=== PATIENT | male | born 1950 | race Caucasian/White ===

== ENCOUNTER 2022-12-25 10:20 | Inpatient (IN) | payer MEDICARE, OTHER ==
[~2022-12-25] VITALS: Ht 195.6 cm; Wt 85.6 kg
[2022-12-25] MEDS ORDERED: FUROSEMIDE 40 MG/4 ML VIAL IV ONE (10:45)
[2022-12-25 11:18] LABS: Hemoglobin 8.6 g/dL (13.5-17.5)
[2022-12-25 11:20] LABS: Hematocrit 27.2 % (41.0-53.0); Mean Corpuscular Hemoglobin 39.4 pg (28.0-32.0); Mean Corpuscular Hgb Conc. 31.7 g/dL (32.0-36.0); Mean Corpuscular Volume 124.2 fL (80.0-100.0); Red Blood Cells 2.19 10^6/uL (4.5-5.90); Red Cell Distribution Width 19.2 % (11.8-14.3); White Blood Cell 3.9 10^3/uL (4.4-10.8)
[2022-12-25 11:26] LABS: Potassium 4.6 mmol/L (3.5-5.1)
[2022-12-25 11:30] LABS: Lactic Acid w/Reflex 3.3 mmol/L (0.4-2.0)
[2022-12-25 11:33] LABS: Albumin 3.2 g/dL (3.4-5.0); BUN/Creatinine Ratio 6.2 (10.0-20.0); Bilirubin, Total 1.6 mg/dL (0.2-1.0); Calcium 9.4 mg/dL (8.5-10.1); Magnesium 2.4 mg/dL (1.6-2.6); Total Protein 5.6 g/dL (6.4-8.2)
[2022-12-25 12:01] LABS: Basophils % (manual) 0 (0.0-2.0); Blast Cells 0; Eosinophils % (manual) 0 (0-7); Metamyelocytes % 0; Myelocytes % 0; Promyelocytes % 0; Reactive Lymphocytes 0
[2022-12-25] MEDS ORDERED: VANCOMYCIN PER PHARMACY 1,000 MG IV SCH (12:30)
[2022-12-25 12:51] LABS: Band Neutrophils % (manual) 3; Lymphocytes % (manual) 24 (10.0-50.0); Monocytes % (manual) 12 (0-12)
[2022-12-25] MEDS ORDERED: PIPERACILLIN-TAZOB 2.25GM 50 ML IV ONE (13:30)
[2022-12-25] MEDS ORDERED: PANTOPRAZOLE 40 MG/10 ML VIAL INJ IV ONE (13:30)
[2022-12-25] MEDS ORDERED: VANCOMYCIN 1GM/250ML 250 ML IV ONE (13:36)
[2022-12-25] MEDS ORDERED: ACYC-163 PO (13:40)
[2022-12-25] MEDS ORDERED: DEXA4TAB PO (13:40)
[2022-12-25] MEDS ORDERED: CARV6.2551 PO (13:40)
[2022-12-25] MEDS ORDERED: ASPI1TAB37 PO (13:40)
[2022-12-25] MEDS ORDERED: FOLI1TAB6 PO (13:40)
[2022-12-25] MEDS ORDERED: MONT-8 PO (13:40)
[2022-12-25] MEDS ORDERED: ESCI-28 PO (13:40)
[2022-12-25] MEDS ORDERED: ALBUMIN 5% 250 ML IV ONE (13:45)
[2022-12-25] MEDS ORDERED: MORPHINE SULFATE INJ 2 MG/ml SYRG IV PRN (13:45)
[2022-12-25] MEDS ORDERED: NITROGLYCERIN 0.4 MG SL TAB SL PRN (13:45)
[2022-12-25] MEDS ORDERED: PIPERACILLIN-TAZO 4.5GM 100 ML IV ONE (13:45)
[2022-12-25] MEDS ORDERED: ALBUTEROL SULF 2.5 MG/0.5ML(0.5%) NEB SOLN NEB PRN (14:15)
[2022-12-25 15:24] VITALS: BP 106/73
[2022-12-25 17:25] LABS: Lactic Acid w/Reflex 2.8 mmol/L (0.4-2.0)
[2022-12-25] MEDS ORDERED: ONDANSETRON HCL 4 MG/2 ML VIAL IV ONE (17:30)
[2022-12-25] MEDS: FUROSEMIDE 40 MG/4 ML VIAL IV SCH (18:00)
[2022-12-25] MEDS ORDERED: VANCOMYCIN 500 MG in D5W 5% 100 ML IV ONE (18:30)
[2022-12-25] MEDS: IPRATROPIUM BROM 0.5 MG/2.5ML INH SOL NEB SCH ×2 (18:41→22:03)
[2022-12-25] MEDS: ALBUTEROL SULF 2.5 MG/0.5ML(0.5%) NEB SOLN NEB SCH ×2 (18:41→22:03)
[2022-12-25] MEDS ORDERED: EPOETIN ALFA-EPBX 4,000 UNIT/ML VIAL SC ONE (21:00)
[2022-12-25] MEDS: PIPERACILLIN-TAZOB 2.25GM 50 ML IV SCH (21:53)
[2022-12-25] MEDS ORDERED: PIPERACILLIN-TAZO 4.5GM 100 ML IV SCH (22:00)
[2022-12-25 22:03] LABS: Urine Bacteria NONE SEEN /hpf (None Seen); Urine Blood Negative /uL (Negative); Urine Hyaline Cast FEW /lpf (0 - 2); Urine WBC 1 /hpf (0 - 3)
[2022-12-25] MEDS: ACYCLOVIR 400 MG TAB PO SCH (23:09)
[2022-12-26] VITALS (8 sets, daily range): BP systolic 101–135; BP diastolic 56–68
[2022-12-26] MEDS: ALBUTEROL SULF 2.5 MG/0.5ML(0.5%) NEB SOLN NEB SCH ×5 (01:55→19:13)
[2022-12-26] MEDS: IPRATROPIUM BROM 0.5 MG/2.5ML INH SOL NEB SCH ×5 (01:55→19:11)
[2022-12-26] MEDS: PIPERACILLIN-TAZOB 2.25GM 50 ML IV SCH ×4 (02:00→22:03)
[2022-12-26] MEDS: FUROSEMIDE 40 MG/4 ML VIAL IV SCH ×2 (05:57→19:01)
[2022-12-26 06:13] LABS: Basophils # (auto) 0 10 ^3/uL (0-0.2); Basophils % (auto) 0.2 % (0.0-2.0); Eosinophils # (auto) 0 10 ^3/uL (0-0.8); Hemoglobin 7.2 g/dL (13.5-17.5); Lymphocytes # (auto) 0.6 10 ^3/uL (0.4-5.4); Mean Corpuscular Hgb Conc. 33.4 g/dL (32.0-36.0); Monocytes # (auto) 0.5 10 ^3/uL (0-1.3); Neutrophils # (auto) 2.3 10 ^3/uL (1.6-8.6); Red Blood Cells 1.81 10^6/uL (4.5-5.90); White Blood Cell 3.5 10^3/uL (4.4-10.8)
[2022-12-26 06:15] LABS: Eosinophils % (auto) 0.9 % (0.0-7.0); Hematocrit 21.5 % (41.0-53.0); Mean Corpuscular Hemoglobin 39.8 pg (28.0-32.0); Mean Corpuscular Volume 119.2 fL (80.0-100.0); Monocytes % (auto) 14.9 % (0.0-12.0); Red Cell Distribution Width 18.5 % (11.8-14.3)
[2022-12-26 06:29] LABS: Potassium 4.4 mmol/L (3.5-5.1)
[2022-12-26 06:58] LABS: Albumin 2.9 g/dL (3.4-5.0); BUN/Creatinine Ratio 6.5 (10.0-20.0)
[2022-12-26 07:00] LABS: Bilirubin, Total 1.4 mg/dL (0.2-1.0); Total Protein 4.9 g/dL (6.4-8.2)
[2022-12-26] MEDS: MONTELUKAST SODIUM 10 MG TAB PO SCH (09:02)
[2022-12-26] MEDS: ACYCLOVIR 400 MG TAB PO SCH ×2 (09:02→22:24)
[2022-12-26] MEDS: FOLIC ACID 1 MG TAB PO SCH (09:02)
[2022-12-26] MEDS: CITALOPRAM HYDROBR 20 MG TAB PO SCH (09:02)
[2022-12-26] MEDS: ASPirin-EC 81 mg tab PO SCH (09:02)
[2022-12-26] MEDS: PANTOPRAZOLE 40 MG/10 ML VIAL INJ IV SCH (09:02)
[2022-12-26] MEDS ORDERED: VANCOMYCIN 750mg/250ml 250 ML IV ONE (15:00)
[2022-12-26 20:35] LABS: % Iron Saturation 51.1 % (20-55)
[2022-12-26] MEDS ORDERED: EPOETIN ALFA-EPBX 4,000 UNIT/ML VIAL SC ONE (21:00)
[2022-12-27] VITALS (7 sets, daily range): BP systolic 104–148; BP diastolic 41–78
[2022-12-27] MEDS: PIPERACILLIN-TAZOB 2.25GM 50 ML IV SCH ×4 (02:25→20:47)
[2022-12-27 05:27] LABS: Basophils # (auto) 0 10 ^3/uL (0-0.2); Eosinophils # (auto) 0.1 10 ^3/uL (0-0.8); Hemoglobin 7.4 g/dL (13.5-17.5); Lymphocytes # (auto) 0.7 10 ^3/uL (0.4-5.4); Monocytes # (auto) 0.5 10 ^3/uL (0-1.3); White Blood Cell 3.2 10^3/uL (4.4-10.8)
[2022-12-27 05:29] LABS: Basophils % (auto) 0.3 % (0.0-2.0); Hematocrit 22.3 % (41.0-53.0); Lymphocytes % (auto) 22.4 % (10.0-50.0); Mean Corpuscular Hgb Conc. 33.2 g/dL (32.0-36.0); Mean Corpuscular Volume 120.5 fL (80.0-100.0); Monocytes % (auto) 14.2 % (0.0-12.0); Neutrophils % (auto) 61.1 % (37.0-80.0); Nucleated Red Blood Cells % 1.1 %; Red Blood Cells 1.85 10^6/uL (4.5-5.90); Red Cell Distribution Width 19.1 % (11.8-14.3)
[2022-12-27] MEDS: FUROSEMIDE 40 MG/4 ML VIAL IV SCH ×2 (06:00→18:10)
[2022-12-27] MEDS: IPRATROPIUM BROM 0.5 MG/2.5ML INH SOL NEB SCH ×3 (06:39→19:32)
[2022-12-27] MEDS: ALBUTEROL SULF 2.5 MG/0.5ML(0.5%) NEB SOLN NEB SCH ×3 (06:39→19:32)
[2022-12-27] MEDS: MONTELUKAST SODIUM 10 MG TAB PO SCH (13:03)
[2022-12-27] MEDS: FOLIC ACID 1 MG TAB PO SCH (13:03)
[2022-12-27] MEDS: ACYCLOVIR 400 MG TAB PO SCH ×2 (13:03→20:49)
[2022-12-27] MEDS: PANTOPRAZOLE 40 MG/10 ML VIAL INJ IV SCH (13:03)
[2022-12-27] MEDS: CITALOPRAM HYDROBR 20 MG TAB PO SCH (13:04)
[2022-12-27] MEDS: ASPirin-EC 81 mg tab PO SCH (13:04)
[2022-12-27] MEDS ORDERED: ACETAMINOPHEN 325 MG TAB PO PRN (14:30)
[2022-12-27] MEDS: AMIODARONE HCL 200 MG TAB PO SCH (16:38)
[2022-12-27] MEDS ORDERED: EPOETIN ALFA-EPBX 4,000 UNIT/ML VIAL SC ONE (21:00)
[2022-12-27] MEDS ORDERED: TEMAZEPAM 15 MG CAP PO ONE (21:15)
[2022-12-28] VITALS (7 sets, daily range): BP systolic 101–139; BP diastolic 54–78
[2022-12-28] MEDS: PIPERACILLIN-TAZOB 2.25GM 50 ML IV SCH ×3 (02:40→14:07)
[2022-12-28] MEDS: FUROSEMIDE 40 MG/4 ML VIAL IV SCH ×2 (06:00→18:28)
[2022-12-28] MEDS: IPRATROPIUM BROM 0.5 MG/2.5ML INH SOL NEB SCH ×3 (06:46→19:03)
[2022-12-28] MEDS: ALBUTEROL SULF 2.5 MG/0.5ML(0.5%) NEB SOLN NEB SCH ×3 (06:46→19:03)
[2022-12-28 08:56] LABS: Basophils # (auto) 0 10 ^3/uL (0-0.2); Eosinophils # (auto) 0.1 10 ^3/uL (0-0.8); Hemoglobin 7.4 g/dL (13.5-17.5); Lymphocytes # (auto) 0.6 10 ^3/uL (0.4-5.4); Monocytes # (auto) 0.6 10 ^3/uL (0-1.3); Neutrophils # (auto) 2.1 10 ^3/uL (1.6-8.6); White Blood Cell 3.3 10^3/uL (4.4-10.8)
[2022-12-28 08:57] LABS: Hepatitis B Surface Antibody Positive (Negative)
[2022-12-28 08:58] LABS: Basophils % (auto) 0.2 % (0.0-2.0); Eosinophils % (auto) 1.6 % (0.0-7.0); Hematocrit 22.1 % (41.0-53.0); Lymphocytes % (auto) 17.4 % (10.0-50.0); Mean Corpuscular Hemoglobin 40.1 pg (28.0-32.0); Mean Corpuscular Hgb Conc. 33.5 g/dL (32.0-36.0); Mean Corpuscular Volume 119.8 fL (80.0-100.0); Monocytes % (auto) 17.2 % (0.0-12.0); Neutrophils % (auto) 63.6 % (37.0-80.0); Nucleated Red Blood Cells % 0.8 %; Red Blood Cells 1.84 10^6/uL (4.5-5.90); Red Cell Distribution Width 19.3 % (11.8-14.3)
[2022-12-28 09:05] LABS: Albumin 2.6 g/dL (3.4-5.0); Calcium 7.8 mg/dL (8.5-10.1); Potassium 3.8 mmol/L (3.5-5.1)
[2022-12-28 09:10] LABS: BUN/Creatinine Ratio 5.8 (10.0-20.0); Bilirubin, Total 1.5 mg/dL (0.2-1.0)
[2022-12-28 09:15] LABS: Hepatitis A Total Antibody Negative (Negative)
[2022-12-28] MEDS: FOLIC ACID 1 MG TAB PO SCH (09:39)
[2022-12-28] MEDS: PANTOPRAZOLE 40 MG/10 ML VIAL INJ IV SCH (09:39)
[2022-12-28] MEDS: ASPirin-EC 81 mg tab PO SCH (09:39)
[2022-12-28] MEDS: AMIODARONE HCL 200 MG TAB PO SCH (09:39)
[2022-12-28] MEDS: CITALOPRAM HYDROBR 20 MG TAB PO SCH (09:39)
[2022-12-28] MEDS: MONTELUKAST SODIUM 10 MG TAB PO SCH (09:39)
[2022-12-28] MEDS: ACYCLOVIR 400 MG TAB PO SCH ×2 (09:41→22:18)
[2022-12-28 12:16] LABS: Hepatitis C Antibody Negative (Negative)
[2022-12-28] MEDS ORDERED: IOHEXOL 350 MG/ML 100ML IJ ONE (15:58)
[2022-12-28] MEDS ORDERED: VANCOMYCIN 1GM/250ML 250 ML IV ONE (16:00)
[2022-12-28] MEDS ORDERED: HEPARIN DRIP/D5W 100UNITS/ML 250 ML IV SCH (19:00)
[2022-12-28 19:03] LABS: Basophils # (auto) 0 10 ^3/uL (0-0.2); Basophils % (auto) 0.6 % (0.0-2.0); Eosinophils # (auto) 0.1 10 ^3/uL (0-0.8); Eosinophils % (auto) 1.8 % (0.0-7.0); Hematocrit 25.4 % (41.0-53.0); Lymphocytes # (auto) 0.6 10 ^3/uL (0.4-5.4); Lymphocytes % (auto) 17.5 % (10.0-50.0); Mean Corpuscular Hemoglobin 39.5 pg (28.0-32.0); Mean Corpuscular Hgb Conc. 31.4 g/dL (32.0-36.0); Monocytes # (auto) 0.6 10 ^3/uL (0-1.3); Monocytes % (auto) 15.7 % (0.0-12.0); Neutrophils # (auto) 2.3 10 ^3/uL (1.6-8.6); Neutrophils % (auto) 64.4 % (37.0-80.0); Nucleated Red Blood Cells % 0.5 %; Red Blood Cells 2.01 10^6/uL (4.5-5.90); White Blood Cell 3.6 10^3/uL (4.4-10.8)
[2022-12-28 19:18] LABS: INR 1.21 (0.9-1.15)
[2022-12-28] MEDS: CEFEPIME 1GM/ 50ML 50 ML IV SCH (22:19)
[2022-12-29 02:31] LABS: Basophils # (auto) 0 10 ^3/uL (0-0.2); Eosinophils # (auto) 0.1 10 ^3/uL (0-0.8); Hemoglobin 7.9 g/dL (13.5-17.5); Monocytes # (auto) 0.7 10 ^3/uL (0-1.3); Neutrophils # (auto) 2.4 10 ^3/uL (1.6-8.6); White Blood Cell 4.1 10^3/uL (4.4-10.8)
[2022-12-29 02:33] LABS: Basophils % (auto) 0.5 % (0.0-2.0); Eosinophils % (auto) 1.7 % (0.0-7.0); Hematocrit 24.8 % (41.0-53.0); Lymphocytes % (auto) 23.4 % (10.0-50.0); Mean Corpuscular Hemoglobin 39.6 pg (28.0-32.0); Mean Corpuscular Hgb Conc. 32.1 g/dL (32.0-36.0); Mean Corpuscular Volume 123.6 fL (80.0-100.0); Monocytes % (auto) 16.8 % (0.0-12.0); Neutrophils % (auto) 57.6 % (37.0-80.0); Nucleated Red Blood Cells % 0.5 %
[2022-12-29 02:36] LABS: Red Cell Distribution Width 20.2 % (11.8-14.3)
[2022-12-29] MEDS ORDERED: HEPARIN DRIP/D5W 100UNITS/ML 250 ML IV SCH (04:00)
[2022-12-29 05:00] VITALS: BP 106/63
[2022-12-29] MEDS: IPRATROPIUM BROM 0.5 MG/2.5ML INH SOL NEB SCH ×3 (05:56→19:43)
[2022-12-29] MEDS: ALBUTEROL SULF 2.5 MG/0.5ML(0.5%) NEB SOLN NEB SCH ×3 (05:56→19:43)
[2022-12-29] MEDS: FUROSEMIDE 40 MG/4 ML VIAL IV SCH ×2 (06:18→18:22)
[2022-12-29 08:15] VITALS: BP 139/78
[2022-12-29 09:00] VITALS: BP 101/62
[2022-12-29] MEDS: PANTOPRAZOLE 40 MG/10 ML VIAL INJ IV SCH (10:49)
[2022-12-29] MEDS: CITALOPRAM HYDROBR 20 MG TAB PO SCH (10:50)
[2022-12-29] MEDS: ASPirin-EC 81 mg tab PO SCH (10:50)
[2022-12-29] MEDS: AMIODARONE HCL 200 MG TAB PO SCH (10:50)
[2022-12-29] MEDS: ACYCLOVIR 400 MG TAB PO SCH ×2 (10:51→21:08)
[2022-12-29] MEDS: APIXABAN 2.5 MG TAB PO SCH ×2 (10:51→21:07)
[2022-12-29] MEDS: FOLIC ACID 1 MG TAB PO SCH (10:51)
[2022-12-29] MEDS: MONTELUKAST SODIUM 10 MG TAB PO SCH (10:51)
[2022-12-29 13:00] VITALS: BP 119/59
[2022-12-29 16:25] VITALS: BP 128/65
[2022-12-29] MEDS: CEFEPIME 1GM/ 50ML 50 ML IV SCH (21:01)
[2022-12-30 04:30] VITALS: BP 114/56
[2022-12-30] MEDS: FUROSEMIDE 40 MG/4 ML VIAL IV SCH (06:00)
[2022-12-30] MEDS: IPRATROPIUM BROM 0.5 MG/2.5ML INH SOL NEB SCH ×2 (06:59→12:00)
[2022-12-30] MEDS: ALBUTEROL SULF 2.5 MG/0.5ML(0.5%) NEB SOLN NEB SCH ×2 (06:59→12:00)
[2022-12-30 08:00] VITALS: BP 114/56
[2022-12-30 09:00] VITALS: BP 120/61
[2022-12-30] MEDS: FOLIC ACID 1 MG TAB PO SCH (09:58)
[2022-12-30] MEDS: PANTOPRAZOLE 40 MG/10 ML VIAL INJ IV SCH (09:58)
[2022-12-30] MEDS: CITALOPRAM HYDROBR 20 MG TAB PO SCH (09:58)
[2022-12-30] MEDS: AMIODARONE HCL 200 MG TAB PO SCH (09:58)
[2022-12-30] MEDS: APIXABAN 2.5 MG TAB PO SCH (09:58)
[2022-12-30] MEDS: ACYCLOVIR 400 MG TAB PO SCH (09:58)
[2022-12-30] MEDS: ASPirin-EC 81 mg tab PO SCH (09:58)
[2022-12-30] MEDS: MONTELUKAST SODIUM 10 MG TAB PO SCH (09:58)
[2022-12-30 13:00] VITALS: BP 133/69
[2022-12-30 15:17] VITALS: BP 114/56
[2022-12-30 16:39] VITALS: BP 115/57
== END 2022-12-30 18:25 | DRG 871 ==
LOC: ER 10:20 → EDBD 10:20 → TELE 13:37 → TELE-WESTW 22:14
PROVIDERS: ADMIT Nurse Practitioner Family; ATTEND Family Medicine
PROC: 5A1D70Z Performance of Urinary Filtration, Intermittent, Less than 6 Hours Per Day (ICD-10-PCS; principal; 2022-12-27)
PROC: 5A1D70Z Performance of Urinary Filtration, Intermittent, Less than 6 Hours Per Day (ICD-10-PCS; 2022-12-30)
DX: A41.9 Sepsis, unspecified organism (principal); E43 Unspecified severe protein-calorie malnutrition; N18.6 End stage renal disease; J96.01 Acute respiratory failure with hypoxia; I50.23 Acute on chronic systolic (congestive) heart failure; I26.93 Single subsegmental thrombotic pulmonary embolism without acute cor pulmonale; C90.00 Multiple myeloma not having achieved remission; D61.818 Other pancytopenia; E87.20 Acidosis, unspecified; I48.20 Chronic atrial fibrillation, unspecified; I13.2 Hypertensive heart and chronic kidney disease with heart failure and with stage 5 chronic kidney disease, or end stage renal disease; Z94.84 Stem cells transplant status; R65.20 Severe sepsis without septic shock; D53.9 Nutritional anemia, unspecified; D63.8 Anemia in other chronic diseases classified elsewhere; Z20.822 Contact with and (suspected) exposure to COVID-19; R00.1 Bradycardia, unspecified; I27.20 Pulmonary hypertension, unspecified; I36.1 Nonrheumatic tricuspid (valve) insufficiency; I44.4 Left anterior fascicular block; N28.1 Cyst of kidney, acquired; Z79.899 Other long term (current) drug therapy; Z99.2 Dependence on renal dialysis; Z79.01 Long term (current) use of anticoagulants; Z79.82 Long term (current) use of aspirin; Z82.49 Family history of ischemic heart disease and other diseases of the circulatory system; Z68.22 Body mass index [BMI] 22.0-22.9, adult
CPT/HCPCS: 36415; 71045; 71275; 80053; 80202; 81001; 82668; 82728; 83540; 83550; 83605; 83735; 83880; 84443; 84484; 85007; 85025; 85027; 85379; 85610; 85730; 86704; 86706; 86708; 86803; 86880; 87040; 87081; 87340; 87426; 87804; 90935; 93005; 93306; 93970; 94640; 96365; 96367; 96375; 97163; 99291; C9113; G0378; J2405; J2543; J7060

== ENCOUNTER 2023-01-16 14:57 | Inpatient (IN) | payer MEDICARE, OTHER ==
[~2023-01-16] VITALS: Ht 195.6 cm; Wt 74.4 kg
[~2023-01-16 14:57] MED LIST: ACYC-163 PO; ASPI1TAB37 PO; CARV6.2551 PO; DEXA4TAB PO; ESCI-28 PO; FOLI1TAB6 PO; MONT-8 PO
[2023-01-16 16:19] LABS: Basophils # (auto) 0 10 ^3/uL (0-0.2); Basophils % (auto) 0.7 % (0.0-2.0); Eosinophils # (auto) 0 10 ^3/uL (0-0.8); Eosinophils % (auto) 0.9 % (0.0-7.0); Hematocrit 19.7 % (41.0-53.0); Lymphocytes # (auto) 0.8 10 ^3/uL (0.4-5.4); Lymphocytes % (auto) 17.4 % (10.0-50.0); Mean Corpuscular Volume 117.6 fL (80.0-100.0); Monocytes # (auto) 0.8 10 ^3/uL (0-1.3); Monocytes % (auto) 17.8 % (0.0-12.0); Neutrophils % (auto) 63.2 % (37.0-80.0); Nucleated Red Blood Cells % 0.1 %; Red Blood Cells 1.68 10^6/uL (4.5-5.90); Red Cell Distribution Width 18.3 % (11.8-14.3); White Blood Cell 4.8 10^3/uL (4.4-10.8)
[2023-01-16 16:27] LABS: Hemoglobin 6.7 g/dL (13.5-17.5)
[2023-01-16 16:43] LABS: Albumin 2.7 g/dL (3.4-5.0); Calcium 8.3 mg/dL (8.5-10.1); Potassium 3.4 mmol/L (3.5-5.1)
[2023-01-16 16:47] LABS: BUN/Creatinine Ratio 5.1 (10.0-20.0); Total Protein 5.8 g/dL (6.4-8.2)
[2023-01-16 19:36] LABS: % Iron Saturation 55.2 % (20-55)
[2023-01-16] MEDS ORDERED: DOCUSATE SOD 100 MG CAP PO PRN (22:15)
[2023-01-16] MEDS ORDERED: HYDROcodone-ACET 5/325MG TAB PO PRN (22:15)
[2023-01-16] MEDS ORDERED: ACETAMINOPHEN 325 MG TAB PO PRN (22:15)
[2023-01-16] MEDS ORDERED: ONDANSETRON HCL 4 MG/2 ML VIAL IV PRN (22:15)
[2023-01-16 23:18] LABS: Urine Bacteria NONE SEEN /hpf (None Seen); Urine Blood Negative /uL (Negative); Urine Specific Gravity 1.007 (1.001-1.035); Urine WBC 1 /hpf (0 - 3)
[2023-01-16 23:55] VITALS: BP 124/58
[2023-01-17] MEDS ORDERED: NITROGLYCERIN 0.4 MG SL TAB SL PRN
[2023-01-17] MEDS ORDERED: MORPHINE SULFATE INJ 2 MG/ml SYRG IV PRN
[2023-01-17 00:15] VITALS: BP 125/54
[2023-01-17 02:54] VITALS: BP 121/57
[2023-01-17 06:09] LABS: Basophils # (auto) 0 10 ^3/uL (0-0.2); Hemoglobin 7.6 g/dL (13.5-17.5); Lymphocytes # (auto) 0.9 10 ^3/uL (0.4-5.4); Monocytes # (auto) 0.7 10 ^3/uL (0-1.3)
[2023-01-17 06:12] LABS: Basophils % (auto) 0.8 % (0.0-2.0); Eosinophils # (auto) 0.1 10 ^3/uL (0-0.8); Eosinophils % (auto) 1.3 % (0.0-7.0); Hematocrit 21.9 % (41.0-53.0); Lymphocytes % (auto) 18.4 % (10.0-50.0); Mean Corpuscular Hemoglobin 39.2 pg (28.0-32.0); Mean Corpuscular Hgb Conc. 34.8 g/dL (32.0-36.0); Mean Corpuscular Volume 112.7 fL (80.0-100.0); Neutrophils % (auto) 64.5 % (37.0-80.0); Red Blood Cells 1.94 10^6/uL (4.5-5.90); White Blood Cell 4.7 10^3/uL (4.4-10.8)
[2023-01-17 06:14] LABS: Red Cell Distribution Width 21.6 % (11.8-14.3)
[2023-01-17] MEDS: SODIUM CHLOR 0.9% PF (SALINE LOCK) 10ML VIAL/SYR IV SCH ×2 (06:17→14:02)
[2023-01-17 06:34] LABS: Potassium 3.3 mmol/L (3.5-5.1)
[2023-01-17 06:43] LABS: Albumin 2.7 g/dL (3.4-5.0); BUN/Creatinine Ratio 6.7 (10.0-20.0); Bilirubin, Total 1.3 mg/dL (0.2-1.0); Calcium 8.5 mg/dL (8.5-10.1); Total Protein 6.2 g/dL (6.4-8.2)
[2023-01-17] MEDS: SEVELAMER 800 MG TAB PO SCH ×3 (08:29→18:00)
[2023-01-17] MEDS: ASPirin 81 mg TAB PO SCH (10:11)
[2023-01-17] MEDS: B-COMPLEX W/ C & FOLIC ACID(NEPHROVITE TAB) PO SCH (10:12)
[2023-01-17] MEDS: CARVEDILOL 3.125 MG TAB PO SCH ×2 (10:12→22:59)
[2023-01-17] MEDS ORDERED: POTASSIUM EFFERVESENT TAB 25 MEQ PO ONE (11:15)
[2023-01-17] MEDS: FUROSEMIDE 20 MG/2 ML VIAL IV SCH (18:00)
[2023-01-17 22:00] VITALS: BP 141/56
[2023-01-18] MEDS: SODIUM CHLOR 0.9% PF (SALINE LOCK) 10ML VIAL/SYR IV SCH ×4 (00:15→23:21)
[2023-01-18] MEDS ORDERED: POM (02:45)
[2023-01-18 05:00] VITALS: BP 113/59
[2023-01-18] MEDS: FUROSEMIDE 20 MG/2 ML VIAL IV SCH ×2 (06:08→17:52)
[2023-01-18 06:35] LABS: Basophils # (auto) 0 10 ^3/uL (0-0.2); Eosinophils # (auto) 0.1 10 ^3/uL (0-0.8); Hematocrit 20.8 % (41.0-53.0); Hemoglobin 7.4 g/dL (13.5-17.5); Monocytes # (auto) 0.8 10 ^3/uL (0-1.3); Neutrophils # (auto) 2.8 10 ^3/uL (1.6-8.6)
[2023-01-18 06:36] LABS: Basophils % (auto) 0.7 % (0.0-2.0); Eosinophils % (auto) 2.4 % (0.0-7.0); Lymphocytes % (auto) 21.5 % (10.0-50.0); Mean Corpuscular Hgb Conc. 35.3 g/dL (32.0-36.0); Mean Corpuscular Volume 110.5 fL (80.0-100.0); Monocytes % (auto) 16.1 % (0.0-12.0); Neutrophils % (auto) 59.3 % (37.0-80.0); Nucleated Red Blood Cells % 0.3 %; Red Blood Cells 1.88 10^6/uL (4.5-5.90); White Blood Cell 4.7 10^3/uL (4.4-10.8)
[2023-01-18 06:50] LABS: Red Cell Distribution Width 21.3 % (11.8-14.3)
[2023-01-18] MEDS ORDERED: SODIUM CHL 0.9% 1000 ML BAG XX ONE (07:00)
[2023-01-18 08:59] LABS: Folate (Folic Acid) 14.52 ng/mL (5.38-24)
[2023-01-18 09:00] VITALS: BP 115/65
[2023-01-18] MEDS: ASPirin 81 mg TAB PO SCH (09:10)
[2023-01-18] MEDS: B-COMPLEX W/ C & FOLIC ACID(NEPHROVITE TAB) PO SCH (09:11)
[2023-01-18] MEDS: PANTOPRAZOLE 40 MG TAB PO SCH (09:11)
[2023-01-18] MEDS: CARVEDILOL 3.125 MG TAB PO SCH ×2 (09:11→23:21)
[2023-01-18] MEDS: SEVELAMER 800 MG TAB PO SCH ×3 (09:11→17:51)
[2023-01-18 13:00] VITALS: BP 118/56
[2023-01-18 17:00] VITALS: BP 125/80
[2023-01-18 20:00] VITALS: BP 125/80
[2023-01-18] MEDS ORDERED: EPOETIN ALFA-EPBX 10,000 UNIT/1ML VIAL SC ONE (21:00)
[2023-01-18 22:00] VITALS: BP 118/63
[2023-01-19 05:00] VITALS: BP 114/57
[2023-01-19] MEDS: FUROSEMIDE 20 MG/2 ML VIAL IV SCH ×2 (06:18→18:00)
[2023-01-19] MEDS: SODIUM CHLOR 0.9% PF (SALINE LOCK) 10ML VIAL/SYR IV SCH ×3 (06:18→21:33)
[2023-01-19 06:51] LABS: INR 1.09 (0.9-1.15); Partial Thromboplastin Time 31.5 sec (24.6-33.4)
[2023-01-19 09:00] VITALS: BP 108/51
[2023-01-19] MEDS: SEVELAMER 800 MG TAB PO SCH ×3 (09:18→18:00)
[2023-01-19] MEDS: B-COMPLEX W/ C & FOLIC ACID(NEPHROVITE TAB) PO SCH (09:18)
[2023-01-19] MEDS: PANTOPRAZOLE 40 MG TAB PO SCH (09:19)
[2023-01-19] MEDS: ASPirin 81 mg TAB PO SCH (09:19)
[2023-01-19] MEDS: CARVEDILOL 3.125 MG TAB PO SCH ×2 (09:20→21:32)
[2023-01-19] MEDS ORDERED: LIDOCAINE VISCOUS 2% 15ML UD ONE (12:07)
[2023-01-19] MEDS ORDERED: NALOXONE HCL 0.4 MG/ML VIAL ONE (12:07)
[2023-01-19] MEDS ORDERED: FLUMAZENIL 0.1 MG/ML INJ 10ML MDV IV ONE (12:07)
[2023-01-19] MEDS ORDERED: SODIUM CHLORIDE LOCK 10 ML ONE (12:07)
[2023-01-19] MEDS ORDERED: diphenhdrAMINE HCL 50 MG/1 ML VL ONE (12:08)
[2023-01-19] MEDS ORDERED: MIDAZOLAM HCL 5 MG/ML-1ML VIAL ONE (12:08)
[2023-01-19] MEDS ORDERED: fentaNYL CITRATE 100 MCG/2 ML VL ONE (12:08)
[2023-01-19 13:00] VITALS: BP 108/48
[2023-01-19] MEDS ORDERED: CYANOCOBALAMIN (B-12) 1000 MCG/1 ML VIAL SUBCUT ONE (15:15)
[2023-01-19 16:58] VITALS: BP 130/60
[2023-01-19] MEDS ORDERED: EPOETIN ALFA-EPBX 10,000 UNIT/1ML VIAL SC ONE (21:00)
[2023-01-19 21:35] VITALS: BP 104/44
[2023-01-20 05:00] VITALS: BP 97/45
[2023-01-20] MEDS: SODIUM CHLOR 0.9% PF (SALINE LOCK) 10ML VIAL/SYR IV SCH ×2 (06:24→13:48)
[2023-01-20 06:28] LABS: Hematocrit 25.3 % (41.0-53.0)
[2023-01-20 06:31] LABS: Hemoglobin 8.7 g/dL (13.5-17.5); Mean Corpuscular Hemoglobin 39.2 pg (28.0-32.0); Mean Corpuscular Hgb Conc. 34.3 g/dL (32.0-36.0); Mean Corpuscular Volume 114.3 fL (80.0-100.0); Red Blood Cells 2.22 10^6/uL (4.5-5.90)
[2023-01-20] MEDS: FUROSEMIDE 20 MG/2 ML VIAL IV SCH ×2 (06:32→18:00)
[2023-01-20 06:35] LABS: Red Cell Distribution Width 20.9 % (11.8-14.3)
[2023-01-20 06:36] LABS: Basophils % (manual) 0 (0.0-2.0); Blast Cells 0; Eosinophils % (manual) 0 (0-7); Metamyelocytes % 0; Myelocytes % 0; Promyelocytes % 0
[2023-01-20 06:47] LABS: Albumin 2.8 g/dL (3.4-5.0); Calcium 8.6 mg/dL (8.5-10.1); Potassium 3.8 mmol/L (3.5-5.1)
[2023-01-20 06:51] LABS: BUN/Creatinine Ratio 6.5 (10.0-20.0); Total Protein 6.5 g/dL (6.4-8.2)
[2023-01-20 07:14] LABS: Band Neutrophils % (manual) 1; Lymphocytes % (manual) 16 (10.0-50.0); Monocytes % (manual) 19 (0-12); Reactive Lymphocytes 3
[2023-01-20] MEDS: PANTOPRAZOLE 40 MG TAB PO SCH (08:43)
[2023-01-20] MEDS: B-COMPLEX W/ C & FOLIC ACID(NEPHROVITE TAB) PO SCH (08:44)
[2023-01-20] MEDS: ASPirin 81 mg TAB PO SCH (08:44)
[2023-01-20] MEDS: SEVELAMER 800 MG TAB PO SCH ×3 (08:44→18:00)
[2023-01-20] MEDS: CARVEDILOL 3.125 MG TAB PO SCH (08:45)
[2023-01-20 09:00] VITALS: BP 104/32
[2023-01-20] MEDS ORDERED: CYANOCOBALAMIN 500 MCG TAB PO SCH (10:00)
[2023-01-20 13:00] VITALS: BP 99/27
[2023-01-20 14:25] VITALS: BP 104/43
[2023-01-21] MEDS ORDERED: SODIUM CHL 0.9% 1000 ML BAG XX ONE (07:00)
[2023-01-21] MEDS ORDERED: EPOETIN ALFA-EPBX 10,000 UNIT/1ML VIAL SC ONE (21:00)
== END 2023-01-20 18:24 | DRG 811 ==
LOC: EDBD 14:57 → ER 14:57 → EDUNIT# 14:57 → TELE 23:54 → TELE-WESTW 01-17 22:14
PROVIDERS: ADMIT Nurse Practitioner Family; ATTEND Family Medicine
PROC: 30233N1 Transfusion of Nonautologous Red Blood Cells into Peripheral Vein, Percutaneous Approach (ICD-10-PCS; 2023-01-17)
PROC: 0DB78ZX Excision of Stomach, Pylorus, Via Natural or Artificial Opening Endoscopic, Diagnostic (ICD-10-PCS; 2023-01-19)
PROC: 0DB38ZX Excision of Lower Esophagus, Via Natural or Artificial Opening Endoscopic, Diagnostic (ICD-10-PCS; 2023-01-19)
PROC: 0DB68ZZ Excision of Stomach, Via Natural or Artificial Opening Endoscopic (ICD-10-PCS; 2023-01-19)
PROC: 5A1D70Z Performance of Urinary Filtration, Intermittent, Less than 6 Hours Per Day (ICD-10-PCS; 2023-01-19)
PROC: 0DB98ZX Excision of Duodenum, Via Natural or Artificial Opening Endoscopic, Diagnostic (ICD-10-PCS; principal; 2023-01-19 15:00)
DX: D53.9 Nutritional anemia, unspecified (principal); I50.23 Acute on chronic systolic (congestive) heart failure; J18.1 Lobar pneumonia, unspecified organism; N18.6 End stage renal disease; J44.1 Chronic obstructive pulmonary disease with (acute) exacerbation; D69.6 Thrombocytopenia, unspecified; E87.6 Hypokalemia; E88.09 Other disorders of plasma-protein metabolism, not elsewhere classified; Z20.822 Contact with and (suspected) exposure to COVID-19; D63.1 Anemia in chronic kidney disease; K29.70 Gastritis, unspecified, without bleeding; D75.89 Other specified diseases of blood and blood-forming organs; K22.70 Barrett's esophagus without dysplasia; K31.7 Polyp of stomach and duodenum; K44.9 Diaphragmatic hernia without obstruction or gangrene; Z51.11 Encounter for antineoplastic chemotherapy; Z86.711 Personal history of pulmonary embolism; Z99.2 Dependence on renal dialysis
CPT/HCPCS: 36415; 43239; 70450; 71045; 76705; 80053; 81001; 82140; 82270; 82607; 82746; 83540; 83550; 83615; 83880; 84443; 84484; 85007; 85025; 85027; 85045; 85610; 85730; 86850; 86900; 86901; 86920; 87040; 87081; 87086; 87426; 90935; 93005; 96374; 97163; G0378; J2250

== ENCOUNTER 2023-05-04 09:40 | Day surgery (SDC) | payer MEDICARE ==
[2023-04-29 13:47] LABS: Basophils # (auto) 0 10 ^3/uL (0-0.2); Basophils % (auto) 0.6 % (0.0-2.0); Eosinophils # (auto) 0.1 10 ^3/uL (0-0.8); Hematocrit 31.1 % (41.0-53.0); Hemoglobin 10.1 g/dL (13.5-17.5); Lymphocytes # (auto) 1.3 10 ^3/uL (0.4-5.4); Mean Corpuscular Hgb Conc. 32.4 g/dL (32.0-36.0); Neutrophils # (auto) 2.5 10 ^3/uL (1.6-8.6); White Blood Cell 4.6 10^3/uL (4.4-10.8)
[2023-04-29 13:50] LABS: Eosinophils % (auto) 1.8 % (0.0-7.0); Mean Corpuscular Hemoglobin 36.8 pg (28.0-32.0); Mean Corpuscular Volume 113.8 fL (80.0-100.0); Monocytes # (auto) 0.8 10 ^3/uL (0-1.3); Monocytes % (auto) 16.3 % (0.0-12.0); Neutrophils % (auto) 53.3 % (37.0-80.0); Red Blood Cells 2.73 10^6/uL (4.5-5.90); Red Cell Distribution Width 16.4 % (11.8-14.3)
[2023-04-29 14:19] LABS: INR 1.17 (0.9-1.15); Partial Thromboplastin Time 30.1 SEC (24.5-34.5); Prothrombin Time 12.2 sec (9.3-11.8)
[2023-04-29 14:26] LABS: Albumin 3.2 g/dL (3.4-5.0); BUN/Creatinine Ratio 5.3 (10.0-20.0); Bilirubin, Total 0.7 mg/dL (0.2-1.0); Calcium 8.8 mg/dL (8.5-10.1); Total Protein 8.4 g/dL (6.4-8.2)
[~2023-05-04] VITALS: Ht 195.6 cm; Wt 79.4 kg
[~2023-05-04 09:40] MED LIST changes: -ACYC-163 PO; +ACYC1TAB2 PO; +APIX2.5T PO; -ASPI1TAB37 PO; -ESCI-28 PO; +ESCI1TAB36 PO; +FOLI-119 PO; -FOLI1TAB6 PO; +FURO1TAB33 PO; -MONT-8 PO; +PANT40T PO
[2023-05-04] MEDS ORDERED: SODIUM CHLORIDE LOCK 10 ML ONE (09:44)
[2023-05-04] MEDS: MIDAZOLAM HCL 5 MG/ML-1ML VIAL ONE ×3 (10:41→10:58)
[2023-05-04] MEDS: fentaNYL CITRATE 100 MCG/2 ML VL ONE ×3 (10:41→10:58)
[2023-05-04] MEDS: diphenhdrAMINE HCL 50 MG/1 ML VL ONE ×2 (10:41→10:44)
[2023-05-04 11:09] VITALS: TEMP 98; O2SAT 99
[2023-05-04 12:04] VITALS: BP 115/54; PULSE 63; RESP 18; O2SAT 94
== END 2023-05-04 11:09 | disposition home or self-care (01) ==
LOC: GI 09:40
PROVIDERS: ATTEND Internal Medicine Gastroenterology
DX: Z12.11 Encounter for screening for malignant neoplasm of colon (principal); K63.5 Polyp of colon; K57.30 Diverticulosis of large intestine without perforation or abscess without bleeding; K63.89 Other specified diseases of intestine; I25.2 Old myocardial infarction; I10 Essential (primary) hypertension; I49.9 Cardiac arrhythmia, unspecified; K21.9 Gastro-esophageal reflux disease without esophagitis; K44.9 Diaphragmatic hernia without obstruction or gangrene; D64.9 Anemia, unspecified; Z82.49 Family history of ischemic heart disease and other diseases of the circulatory system; Z79.899 Other long term (current) drug therapy; Z98.890 Other specified postprocedural states
CPT/HCPCS: 36415; 45380; 80053; 85025; 85610; 85730; 88305; J1200; J2250; J3010; J7030; 99152; 99153

== ENCOUNTER 2023-07-12 10:33 | Inpatient (IN) | payer MEDICARE ==
[~2023-07-12] VITALS: Ht 195.6 cm; Wt 80.4 kg
[2023-07-12 11:20] LABS: Basophils # (auto) 0 10 ^3/uL (0-0.2); Eosinophils # (auto) 0 10 ^3/uL (0-0.8); Eosinophils % (auto) 0.2 % (0.0-7.0); Lymphocytes # (auto) 0.2 10 ^3/uL (0.4-5.4); Mean Corpuscular Volume 114.9 fL (80.0-100.0); Monocytes # (auto) 0.2 10 ^3/uL (0-1.3); Neutrophils # (auto) 2.9 10 ^3/uL (1.6-8.6)
[2023-07-12 11:22] LABS: Basophils % (auto) 0.3 % (0.0-2.0); Hematocrit 31.6 % (41.0-53.0); Hemoglobin 10.3 g/dL (13.5-17.5); Lymphocytes % (auto) 6.5 % (10.0-50.0); Mean Corpuscular Hemoglobin 37.3 pg (28.0-32.0); Mean Corpuscular Hgb Conc. 32.5 g/dL (32.0-36.0); Monocytes % (auto) 4.9 % (0.0-12.0); Neutrophils % (auto) 88.1 % (37.0-80.0); Nucleated Red Blood Cells % 0.6 %; Red Blood Cells 2.75 10^6/uL (4.5-5.90); Red Cell Distribution Width 18.7 % (11.8-14.3); White Blood Cell 3.3 10^3/uL (4.4-10.8)
[2023-07-12 11:48] LABS: Lactic Acid w/Reflex 4.4 mmol/L (0.4-2.0)
[2023-07-12 11:52] LABS: Alanine Aminotransferase 29 U/L (7-40); Albumin 3.1 g/dL (3.2-4.8); Alkaline Phosphatase 91 U/L (46-116); Anion Gap 22 (5-15); Aspartate Aminotransferase 37 U/L (13-40); BUN/Creatinine Ratio 9.8 (10.0-20.0); Calcium 7.1 mg/dL (8.5-10.1); Carbon Dioxide 14 mmol/L (20-30); Chloride 102 mmol/L (98-107); Glucose 133 mg/dL (74-106); Sodium 138 mmol/L (136-145)
[2023-07-12 11:53] LABS: Bilirubin, Total 0.3 mg/dL (0.2-1.0); Total Protein 6.9 g/dL (5.7-8.2)
[2023-07-12 11:57] LABS: Blood Urea Nitrogen 128 mg/dL (9-23); Potassium 7.8 mmol/L (3.5-5.1)
[2023-07-12] MEDS ORDERED: ALBUTEROL SULF 2.5 MG/0.5ML(0.5%) NEB SOLN HHN ONE (12:00)
[2023-07-12] MEDS ORDERED: SODIUM BICARBONATE 8.4 % INJ 50ML VIAL IV ONE (12:00)
[2023-07-12] MEDS ORDERED: cefTRIAXone 1GM/50ML D5W 50 ML IV ONE (12:00)
[2023-07-12] MEDS ORDERED: CALCIUM GLUC 1,000mg/50ml-NS 50 ML IV ONE (12:00)
[2023-07-12 12:43] VITALS: PULSE 67; RESP 18; O2SAT 93
[2023-07-12] MEDS ORDERED: SODIUM CHL 0.9% 1000 ML BAG XX ONE (13:15)
[2023-07-12] MEDS: NOREPINEPHRINE 8 MG/250ML KIT 250 ML IV PRN (13:48)
[2023-07-12] MEDS: ALBUMIN 25% 50 ML IV PRN ×2 (14:05→14:30)
[2023-07-12] MEDS ORDERED: PANTOPRAZOLE 40 MG TAB PO ONE (14:45)
[2023-07-12] MEDS ORDERED: NITROGLYCERIN 0.4 MG SL TAB SL PRN ×2 (14:45→15:30)
[2023-07-12] MEDS ORDERED: MORPHINE SULFATE INJ 2 MG/ml SYRG IV PRN ×2 (14:45→15:30)
[2023-07-12 15:24] LABS: Hepatitis B Surface Antibody Positive (Negative)
[2023-07-12] MEDS ORDERED: DOCUSATE SOD 100 MG CAP PO PRN (15:30)
[2023-07-12 15:36] LABS: Hepatitis B Surface Antigen Negative (Negative)
[2023-07-12 16:56] LABS: INR 1.13 (0.9-1.15); Partial Thromboplastin Time 32.7 SEC (24.5-34.5); Prothrombin Time 11.8 sec (9.3-11.8)
[2023-07-12] MEDS ORDERED: FUROSEMIDE 40 MG/4 ML VIAL IV SCH (18:00)
[2023-07-12] MEDS ORDERED: HEPARIN DRIP/D5W 100UNITS/ML 250 ML IV SCH (18:00)
[2023-07-12] MEDS ORDERED: HEPARIN SODIUM (PORCINE) 5000 UNITS/ML 1ML VIAL IV ONE (18:00)
[2023-07-12] MEDS: ALBUMIN 25% 50 ML IV SCH ×2 (18:19→18:29)
[2023-07-12] MEDS: AZITHROMYCIN 500MG/ 250ML 250 ML IV SCH (18:49)
[2023-07-12 19:30] VITALS: PULSE 72; RESP 16; O2SAT 99
[2023-07-12 20:43] LABS: Ferritin > 1650.0 ng/mL (22-322); Folate (Folic Acid) > 24.00 ng/mL (>5.38)
[2023-07-12] MEDS ORDERED: EPOETIN ALFA-EPBX 10,000 UNIT/1ML VIAL SC ONE (21:00)
[2023-07-12 21:28] LABS: % Iron Saturation 139.4 % (20-55)
[2023-07-12] MEDS ORDERED: APIXABAN 2.5 MG TAB PO SCH ×2 (22:00)
[2023-07-12 23:11] VITALS: BP 123/56; PULSE 120; RESP 26; TEMP 99.8; O2SAT 90
[2023-07-12 23:20] VITALS: BP 123/56; PULSE 120; RESP 26; TEMP 99.8; O2SAT 90
[2023-07-12 23:30] VITALS: BP 110/40; PULSE 106; PULSE 122; RESP 26; O2SAT 92
[2023-07-12 23:45] VITALS: BP 97/37; PULSE 126; RESP 26; O2SAT 98
[2023-07-13] VITALS (107 sets, daily range): BP systolic 47–180; BP diastolic 24–120; PULSE 57–133; RESP 16–33; TEMP 98–100.6; O2SAT 88–100
[2023-07-13 07:01] LABS: Basophils # (auto) 0 10 ^3/uL (0-0.2); Basophils % (auto) 0.2 % (0.0-2.0); Eosinophils # (auto) 0 10 ^3/uL (0-0.8); Eosinophils % (auto) 0.1 % (0.0-7.0); Hematocrit 34.9 % (41.0-53.0); Hemoglobin 10.8 g/dL (13.5-17.5); Lymphocytes # (auto) 0.5 10 ^3/uL (0.4-5.4); Lymphocytes % (auto) 7.9 % (10.0-50.0); Mean Corpuscular Hemoglobin 37.2 pg (28.0-32.0); Mean Corpuscular Volume 120.3 fL (80.0-100.0); Monocytes # (auto) 0.6 10 ^3/uL (0-1.3); Monocytes % (auto) 10.2 % (0.0-12.0); Neutrophils % (auto) 81.6 % (37.0-80.0); Nucleated Red Blood Cells % 0.7 %; Red Cell Distribution Width 19.4 % (11.8-14.3); White Blood Cell 6.1 10^3/uL (4.4-10.8)
[2023-07-13 07:34] LABS: Alanine Aminotransferase 26 U/L (7-40); Albumin 3.5 g/dL (3.2-4.8); Alkaline Phosphatase 82 U/L (46-116); Anion Gap 17 (5-15); Aspartate Aminotransferase 47 U/L (13-40); BUN/Creatinine Ratio 4.1 (10.0-20.0); Bilirubin, Total 0.6 mg/dL (0.2-1.0); Calcium 7.8 mg/dL (8.5-10.1); Carbon Dioxide 23 mmol/L (20-30); Chloride 98 mmol/L (98-107); Glucose 157 mg/dL (74-106); Potassium 4.6 mmol/L (3.5-5.1); Sodium 138 mmol/L (136-145); Total Protein 7.3 g/dL (5.7-8.2)
[2023-07-13 07:39] LABS: Blood Urea Nitrogen 38 mg/dL (9-23)
[2023-07-13] MEDS ORDERED: AMIODARONE 450mg/250ml AE 250 ML IV SCH (08:45)
[2023-07-13] MEDS: cefTRIAXone 1GM/50ML D5W 50 ML IV SCH (09:27)
[2023-07-13] MEDS: CITALOPRAM HYDROBR 20 MG TAB PO SCH (09:39)
[2023-07-13] MEDS: FOLIC ACID 1 MG TAB PO SCH (09:39)
[2023-07-13] MEDS ORDERED: PANTOPRAZOLE 40 MG TAB PO SCH ×2 (10:00)
[2023-07-13 10:08] LABS: Lactic Acid w/Reflex 4.4 mmol/L (0.4-2.0)
[2023-07-13] MEDS: ALBUMIN 25% 50 ML IV SCH (10:17)
[2023-07-13] MEDS: AZITHROMYCIN 500MG/ 250ML 250 ML IV SCH (10:18)
[2023-07-13] MEDS: ONDANSETRON HCL 4 MG/2 ML VIAL IV PRN (12:04)
[2023-07-13] MEDS: NOREPINEPHRINE 8 MG/250ML KIT 250 ML IV PRN (12:30)
[2023-07-13] MEDS: methylPREDNISolone SOD SUCC 40 MG/ML VL IV SCH ×2 (14:00→21:43)
[2023-07-13] MEDS: ACETAMINOPHEN 325 MG TAB PO PRN (17:52)
[2023-07-13] MEDS: DOXYCYCLINE 100MG/250ML 250 ML IV SCH (21:43)
[2023-07-13] MEDS: AMIODARONE HCL 200 MG TAB PO SCH (21:43)
[2023-07-13] MEDS: PANTOPRAZOLE 40 MG/10 ML VIAL INJ IV SCH (21:44)
[2023-07-14] VITALS (53 sets, daily range): BP systolic 54–153; BP diastolic 13–107; PULSE 50–91; RESP 16–23; TEMP 98–98.3; O2SAT 86–100
[2023-07-14 04:02] LABS: Basophils # (auto) 0 10 ^3/uL (0-0.2); Basophils % (auto) 0.1 % (0.0-2.0); Eosinophils # (auto) 0 10 ^3/uL (0-0.8); Eosinophils % (auto) 0.1 % (0.0-7.0); Hemoglobin 10.5 g/dL (13.5-17.5); Lymphocytes # (auto) 0.2 10 ^3/uL (0.4-5.4); Monocytes # (auto) 0.3 10 ^3/uL (0-1.3); Neutrophils # (auto) 3.7 10 ^3/uL (1.6-8.6); White Blood Cell 4.2 10^3/uL (4.4-10.8)
[2023-07-14 04:06] LABS: Hematocrit 31.9 % (41.0-53.0); Lymphocytes % (auto) 4.8 % (10.0-50.0); Mean Corpuscular Hemoglobin 38.4 pg (28.0-32.0); Mean Corpuscular Hgb Conc. 33.1 g/dL (32.0-36.0); Mean Corpuscular Volume 116.2 fL (80.0-100.0); Monocytes % (auto) 6.3 % (0.0-12.0); Neutrophils % (auto) 88.7 % (37.0-80.0); Nucleated Red Blood Cells % 0.6 %; Red Blood Cells 2.74 10^6/uL (4.5-5.90); Red Cell Distribution Width 18.2 % (11.8-14.3)
[2023-07-14 04:13] LABS: Chloride 92 mmol/L (98-107); Potassium 4.5 mmol/L (3.5-5.1); Sodium 136 mmol/L (136-145)
[2023-07-14 04:14] LABS: Anion Gap 19 (5-15); Calcium 8.2 mg/dL (8.5-10.1); Carbon Dioxide 25 mmol/L (20-30)
[2023-07-14 04:19] LABS: BUN/Creatinine Ratio 5.5 (10.0-20.0); Glucose 206 mg/dL (74-106)
[2023-07-14 04:35] LABS: Blood Urea Nitrogen 59 mg/dL (9-23)
[2023-07-14 05:56] LABS: Anisocytosis Slight; Platelet Estimate Markedly Decreased
[2023-07-14] MEDS: SUCRALFATE 1 GM/10 ML ORAL SUSP GT SCH ×2 (06:18→17:21)
[2023-07-14] MEDS: methylPREDNISolone SOD SUCC 40 MG/ML VL IV SCH ×3 (06:18→21:40)
[2023-07-14] MEDS ORDERED: SODIUM CHL 0.9% 1000 ML BAG XX ONE (07:00)
[2023-07-14] MEDS: ONDANSETRON HCL 4 MG/2 ML VIAL IV PRN ×2 (07:12→20:35)
[2023-07-14] MEDS: ACETAMINOPHEN 325 MG TAB PO PRN ×2 (07:56→22:05)
[2023-07-14] MEDS: PANTOPRAZOLE 40 MG/10 ML VIAL INJ IV SCH ×2 (10:13→21:40)
[2023-07-14] MEDS: CITALOPRAM HYDROBR 20 MG TAB PO SCH (10:13)
[2023-07-14] MEDS: cefTRIAXone 1GM/50ML D5W 50 ML IV SCH (10:13)
[2023-07-14] MEDS: DOXYCYCLINE 100MG/250ML 250 ML IV SCH (10:13)
[2023-07-14] MEDS: FOLIC ACID 1 MG TAB PO SCH (10:13)
[2023-07-14] MEDS ORDERED: EPOETIN ALFA-EPBX 10,000 UNIT/1ML VIAL SC ONE (21:00)
[2023-07-14] MEDS: AMIODARONE HCL 200 MG TAB PO SCH (21:41)
[2023-07-15 08:00] VITALS: PULSE 58; RESP 18; O2SAT 100
[2023-07-15 08:30] VITALS: PULSE 58
[2023-07-15] MEDS: cefTRIAXone 1GM/50ML D5W 50 ML IV SCH (09:00)
[2023-07-15] MEDS: CITALOPRAM HYDROBR 20 MG TAB PO SCH (10:00)
[2023-07-15] MEDS: FOLIC ACID 1 MG TAB PO SCH (10:00)
[2023-07-15] MEDS: PANTOPRAZOLE 40 MG/10 ML VIAL INJ IV SCH ×2 (10:00→21:07)
[2023-07-15] MEDS: methylPREDNISolone SOD SUCC 40 MG/ML VL IV SCH ×3 (15:06→21:08)
[2023-07-15] MEDS: DOXYCYCLINE 100MG/250ML 250 ML IV SCH ×2 (15:08→21:07)
[2023-07-15] MEDS: SUCRALFATE 1 GM/10 ML ORAL SUSP GT SCH (17:00)
[2023-07-15 17:21] VITALS: BP 109/59; PULSE 61; RESP 18; TEMP 97.7; O2SAT 100
[2023-07-15 20:00] VITALS: PULSE 58; PULSE 72; RESP 18
[2023-07-15] MEDS: AMIODARONE HCL 200 MG TAB PO SCH (21:06)
[2023-07-15] MEDS: HYDROcodone-ACET 5/325MG TAB PO PRN (21:06)
[2023-07-15 21:58] VITALS: BP 127/50; PULSE 62; RESP 17; TEMP 97.9; O2SAT 92
[2023-07-16] VITALS (7 sets, daily range): BP systolic 115–143; BP diastolic 48–67; PULSE 57–70; RESP 14–20; TEMP 97.9–98.1; O2SAT 95–100
[2023-07-16] MEDS: HYDROcodone-ACET 5/325MG TAB PO PRN ×2 (02:31→21:28)
[2023-07-16] MEDS: methylPREDNISolone SOD SUCC 40 MG/ML VL IV SCH ×3 (06:05→21:27)
[2023-07-16] MEDS: SUCRALFATE 1 GM/10 ML ORAL SUSP GT SCH ×2 (06:05→16:38)
[2023-07-16 06:36] LABS: Basophils # (auto) 0 10 ^3/uL (0-0.2); Basophils % (auto) 0.2 % (0.0-2.0); Eosinophils # (auto) 0 10 ^3/uL (0-0.8); Hematocrit 26.2 % (41.0-53.0); Hemoglobin 8.8 g/dL (13.5-17.5); Lymphocytes # (auto) 0.2 10 ^3/uL (0.4-5.4); Lymphocytes % (auto) 4.7 % (10.0-50.0); Mean Corpuscular Hemoglobin 37.5 pg (28.0-32.0); Mean Corpuscular Hgb Conc. 33.7 g/dL (32.0-36.0); Mean Corpuscular Volume 111.5 fL (80.0-100.0); Monocytes # (auto) 0.4 10 ^3/uL (0-1.3); Monocytes % (auto) 10.9 % (0.0-12.0); Neutrophils # (auto) 3.1 10 ^3/uL (1.6-8.6); Neutrophils % (auto) 84.2 % (37.0-80.0); Nucleated Red Blood Cells % 0.4 %; Red Blood Cells 2.35 10^6/uL (4.5-5.90); Red Cell Distribution Width 17.2 % (11.8-14.3); White Blood Cell 3.7 10^3/uL (4.4-10.8)
[2023-07-16 06:40] LABS: Alanine Aminotransferase 24 U/L (7-40); Albumin 3.3 g/dL (3.2-4.8); Alkaline Phosphatase 70 U/L (46-116); Anion Gap 14 (5-15); Aspartate Aminotransferase 18 U/L (13-40); BUN/Creatinine Ratio 9.2 (10.0-20.0); Calcium 8.3 mg/dL (8.5-10.1); Carbon Dioxide 27 mmol/L (20-30); Chloride 93 mmol/L (98-107); Glucose 172 mg/dL (74-106); Potassium 4.8 mmol/L (3.5-5.1); Sodium 134 mmol/L (136-145)
[2023-07-16 06:41] LABS: Bilirubin, Total 0.5 mg/dL (0.2-1.0); Total Protein 6.6 g/dL (5.7-8.2)
[2023-07-16 06:48] LABS: Blood Urea Nitrogen 91 mg/dL (9-23)
[2023-07-16] MEDS ORDERED: SODIUM CHL 0.9% 1000 ML BAG XX ONE (07:00)
[2023-07-16] MEDS: cefTRIAXone 1GM/50ML D5W 50 ML IV SCH (12:31)
[2023-07-16] MEDS: PANTOPRAZOLE 40 MG/10 ML VIAL INJ IV SCH ×2 (12:32→21:27)
[2023-07-16] MEDS: CITALOPRAM HYDROBR 20 MG TAB PO SCH (12:35)
[2023-07-16] MEDS: FOLIC ACID 1 MG TAB PO SCH (12:35)
[2023-07-16] MEDS: DOXYCYCLINE 100MG/250ML 250 ML IV SCH ×2 (13:50→21:26)
[2023-07-16] MEDS ORDERED: EPOETIN ALFA-EPBX 10,000 UNIT/1ML VIAL SC ONE (21:00)
[2023-07-16] MEDS: AMIODARONE HCL 200 MG TAB PO SCH (22:12)
[2023-07-17 05:00] VITALS: BP 134/58; PULSE 64; RESP 14; TEMP 97.6; O2SAT 93
[2023-07-17] MEDS: SUCRALFATE 1 GM/10 ML ORAL SUSP GT SCH ×3 (06:07→17:18)
[2023-07-17] MEDS: methylPREDNISolone SOD SUCC 40 MG/ML VL IV SCH ×2 (06:07→14:35)
[2023-07-17 08:00] VITALS: PULSE 55; PULSE 59; RESP 16; O2SAT 95
[2023-07-17 09:00] VITALS: BP 136/58; PULSE 59; RESP 16; TEMP 97.5; O2SAT 95
[2023-07-17] MEDS ORDERED: DOXY-447 PO (09:01)
[2023-07-17] MEDS ORDERED: AMIO200T33 PO (09:01)
[2023-07-17] MEDS: PANTOPRAZOLE 40 MG/10 ML VIAL INJ IV SCH (09:55)
[2023-07-17] MEDS: FOLIC ACID 1 MG TAB PO SCH (09:56)
[2023-07-17] MEDS: CITALOPRAM HYDROBR 20 MG TAB PO SCH (09:56)
[2023-07-17] MEDS: cefTRIAXone 1GM/50ML D5W 50 ML IV SCH (09:56)
[2023-07-17] MEDS: DOXYCYCLINE 100MG/250ML 250 ML IV SCH (10:44)
[2023-07-17 13:00] VITALS: BP 124/56; PULSE 65; RESP 16; TEMP 97.5; O2SAT 98
[2023-07-17 17:00] VITALS: BP 108/60; PULSE 64; RESP 17; TEMP 98.4; O2SAT 95
[2023-07-17 17:08] VITALS: BP 124/56; PULSE 65; RESP 16; TEMP 97.5; O2SAT 98
[2023-07-18] MEDS ORDERED: METOPROLOL SUCCINATE XL 50 MG TAB PO SCH (10:00)
== END 2023-07-17 18:44 | disposition home health service (06) | DRG 871 ==
LOC: ER 10:33 → EDBD 10:33 → EDSEX 10:33 → TELE 14:32 → ICU WEST 23:10 → TELE-CENTR 07-14 13:18
PROVIDERS: ADMIT Nurse Practitioner; ATTEND Nurse Practitioner
PROC: 5A1D70Z Performance of Urinary Filtration, Intermittent, Less than 6 Hours Per Day (ICD-10-PCS; 2023-07-12)
PROC: 30233R1 Transfusion of Nonautologous Platelets into Peripheral Vein, Percutaneous Approach (ICD-10-PCS; principal; 2023-07-13)
PROC: 5A1D70Z Performance of Urinary Filtration, Intermittent, Less than 6 Hours Per Day (ICD-10-PCS; 2023-07-14)
PROC: 5A1D70Z Performance of Urinary Filtration, Intermittent, Less than 6 Hours Per Day (ICD-10-PCS; 2023-07-16)
DX: A41.9 Sepsis, unspecified organism (principal); I21.4 Non-ST elevation (NSTEMI) myocardial infarction; J96.01 Acute respiratory failure with hypoxia; N18.6 End stage renal disease; R65.21 Severe sepsis with septic shock; J18.9 Pneumonia, unspecified organism; I50.22 Chronic systolic (congestive) heart failure; I13.2 Hypertensive heart and chronic kidney disease with heart failure and with stage 5 chronic kidney disease, or end stage renal disease; C90.00 Multiple myeloma not having achieved remission; D61.818 Other pancytopenia; D63.1 Anemia in chronic kidney disease; E11.22 Type 2 diabetes mellitus with diabetic chronic kidney disease; E87.5 Hyperkalemia; I37.1 Nonrheumatic pulmonary valve insufficiency; Z79.899 Other long term (current) drug therapy; Z82.0 Family history of epilepsy and other diseases of the nervous system; Z82.49 Family history of ischemic heart disease and other diseases of the circulatory system; Z83.3 Family history of diabetes mellitus; Z86.711 Personal history of pulmonary embolism; Z96.642 Presence of left artificial hip joint; Z99.2 Dependence on renal dialysis
CPT/HCPCS: 36415; 71045; 80048; 80053; 82306; 82378; 82607; 82728; 82746; 83540; 83550; 83605; 83615; 83735; 83880; 83970; 84100; 84132; 84484; 85025; 85045; 85610; 85730; 86706; 86850; 86900; 86901; 87040; 87081; 87340; 90935; 93005; 93306; 94640; 96361; 96365; 96366; 96367; 96368; 96375; 97110; 97116; 97163; 97530; 99291; C9113; G0378; J0696; J2405; J3490

== ENCOUNTER 2023-08-11 13:50 | Inpatient (IN) | payer MEDICARE ==
[~2023-08-11] VITALS: Ht 195.6 cm; Wt 185.0 kg
[~2023-08-11 13:50] MED LIST changes: +AMIO200T33 PO; -APIX2.5T PO; +DOXY-447 PO
[2023-08-11 15:09] LABS: Hemoglobin 7.4 g/dL (13.5-17.5); White Blood Cell 2.9 10^3/uL (4.4-10.8)
[2023-08-11 15:10] LABS: Hematocrit 22.8 % (41.0-53.0); Mean Corpuscular Hemoglobin 38.6 pg (28.0-32.0); Mean Corpuscular Hgb Conc. 32.5 g/dL (32.0-36.0); Mean Corpuscular Volume 118.7 fL (80.0-100.0); Red Blood Cells 1.92 10^6/uL (4.5-5.90); Red Cell Distribution Width 19.6 % (11.8-14.3)
[2023-08-11 15:21] LABS: Alanine Aminotransferase 18 U/L (7-40); Albumin 3.3 g/dL (3.2-4.8); Alkaline Phosphatase 102 U/L (46-116); Anion Gap 5 (5-15); Aspartate Aminotransferase 14 U/L (13-40); BUN/Creatinine Ratio 5.6 (10.0-20.0); Band Neutrophils % (manual) 0; Basophils % (manual) 0 (0.0-2.0); Blood Urea Nitrogen 20 mg/dL (9-23); Calcium 7.8 mg/dL (8.7-10.4); Carbon Dioxide 31 mmol/L (20-30); Chloride 106 mmol/L (98-107); Eosinophils % (manual) 0 (0-7); Glucose 80 mg/dL (74-106); Magnesium 1.6 mg/dL (1.6-2.6); Metamyelocytes % 0; Myelocytes % 0; Potassium 4.3 mmol/L (3.5-5.1); Promyelocytes % 0; Sodium 142 mmol/L (136-145)
[2023-08-11 15:22] LABS: Bilirubin, Total 0.8 mg/dL (0.2-1.0); Blast Cells 0; Reactive Lymphocytes 0; Total Protein 6.3 g/dL (5.7-8.2)
[2023-08-11 16:27] LABS: Anisocytosis Slight; Lymphocytes % (manual) 23 (10.0-50.0); Monocytes % (manual) 7 (0-12); Platelet Estimate Decreased
[2023-08-11 16:28] LABS: Stomatocytes Few
[2023-08-11] MEDS ORDERED: SODIUM CHLORIDE 0.9% 500 ML IVB ONE (16:30)
[2023-08-11] MEDS ORDERED: SODIUM CHLORIDE 0.9% 1,000 ML IV ONE (16:30)
[2023-08-11 17:42] LABS: INR 1.13 (0.9-1.15); Partial Thromboplastin Time 27.6 SEC (24.5-34.5); Prothrombin Time 11.8 sec (9.3-11.8)
[2023-08-11] MEDS ORDERED: cefTRIAXone 1GM/50ML D5W 50 ML IV ONE (20:15)
[2023-08-11 21:04] VITALS: O2SAT 98
[2023-08-11] MEDS ORDERED: ONDANSETRON HCL 4 MG/2 ML VIAL IV PRN (21:45)
[2023-08-11] MEDS ORDERED: NITROGLYCERIN 0.4 MG SL TAB SL PRN (21:45)
[2023-08-11] MEDS ORDERED: TEMAZEPAM 15 MG CAP PO PRN (21:45)
[2023-08-11] MEDS ORDERED: ACETAMINOPHEN 325 MG TAB PO PRN (21:45)
[2023-08-11] MEDS ORDERED: HYDROcodone-ACET 5/325MG TAB PO PRN (21:45)
[2023-08-11] MEDS ORDERED: DOCUSATE SOD 100 MG CAP PO PRN (21:45)
[2023-08-11] MEDS ORDERED: MORPHINE SULFATE INJ 2 MG/ml SYRG IV PRN ×2 (21:45)
[2023-08-11] MEDS: ACYCLOVIR 400 MG TAB PO SCH (23:36)
[2023-08-12 02:10] VITALS: BP 123/56; PULSE 70; RESP 16; TEMP 98.6
[2023-08-12 02:36] VITALS: BP 124/61; PULSE 70; RESP 10; TEMP 98.5
[2023-08-12 04:43] VITALS: BP 125/63; PULSE 65; RESP 18; TEMP 98.3
[2023-08-12 06:17] LABS: Red Blood Cells 1.96 10^6/uL (4.5-5.90)
[2023-08-12 06:21] LABS: Hematocrit 22.5 % (41.0-53.0); Hemoglobin 7.5 g/dL (13.5-17.5); Mean Corpuscular Hemoglobin 38.1 pg (28.0-32.0); Mean Corpuscular Hgb Conc. 33.2 g/dL (32.0-36.0); White Blood Cell 3.3 10^3/uL (4.4-10.8)
[2023-08-12 06:22] LABS: Alanine Aminotransferase 13 U/L (7-40); Albumin 3.1 g/dL (3.2-4.8); Alkaline Phosphatase 88 U/L (46-116); Anion Gap 7 (5-15); Aspartate Aminotransferase 12 U/L (13-40); BUN/Creatinine Ratio 5.6 (10.0-20.0); Blood Urea Nitrogen 27 mg/dL (9-23); Calcium 7.7 mg/dL (8.7-10.4); Carbon Dioxide 28 mmol/L (20-30); Chloride 108 mmol/L (98-107); Glucose 75 mg/dL (74-106); Potassium 4.8 mmol/L (3.5-5.1); Sodium 143 mmol/L (136-145)
[2023-08-12 06:23] LABS: Bilirubin, Total 0.9 mg/dL (0.2-1.0)
[2023-08-12 07:06] LABS: Red Cell Distribution Width 21.8 % (11.8-14.3)
[2023-08-12 07:08] LABS: Band Neutrophils % (manual) 0; Basophils % (manual) 0 (0.0-2.0); Blast Cells 0; Eosinophils % (manual) 0 (0-7); Metamyelocytes % 0; Myelocytes % 0; Promyelocytes % 0; Reactive Lymphocytes 0
[2023-08-12 08:00] VITALS: PULSE 63; RESP 13; TEMP 98.5; O2SAT 94
[2023-08-12 09:18] LABS: Urine Bacteria NONE SEEN /hpf (None Seen); Urine Blood Negative /uL (Negative); Urine Clarity Clear (Clear); Urine Color Straw (Yellow); Urine Protein, UAD 1+ (Negative); Urine Urobilinogen Normal (Negative); Urine WBC 1 /hpf (0 - 3); Urine pH 8.5 (5.0-8.0)
[2023-08-12 09:21] LABS: Hematocrit 24.2 % (41.0-53.0); Mean Corpuscular Hgb Conc. 32.9 g/dL (32.0-36.0); Mean Corpuscular Volume 115.6 fL (80.0-100.0); Red Blood Cells 2.09 10^6/uL (4.5-5.90); White Blood Cell 3.4 10^3/uL (4.4-10.8)
[2023-08-12 09:25] LABS: Red Cell Distribution Width 21.9 % (11.8-14.3)
[2023-08-12 09:27] LABS: Band Neutrophils % (manual) 0; Basophils % (manual) 0 (0.0-2.0); Blast Cells 0; Eosinophils % (manual) 0 (0-7); Metamyelocytes % 0; Myelocytes % 0; Promyelocytes % 0; Reactive Lymphocytes 0
[2023-08-12] MEDS ORDERED: DexAMETHasone 4 MG TAB PO SCH (10:00)
[2023-08-12] MEDS ORDERED: AMIODARONE HCL 200 MG TAB PO SCH (10:00)
[2023-08-12] MEDS ORDERED: CARVEDILOL 3.125 MG TAB PO SCH (10:00)
[2023-08-12] MEDS ORDERED: CITALOPRAM HYDROBR 20 MG TAB PO SCH (10:00)
[2023-08-12] MEDS ORDERED: PANTOPRAZOLE 40 MG/10 ML VIAL INJ IV SCH (10:00)
[2023-08-12] MEDS ORDERED: FOLIC ACID 1 MG TAB PO SCH (10:00)
[2023-08-12 10:18] LABS: Lymphocytes % (manual) 22 (10.0-50.0); Monocytes % (manual) 26 (0-12); Platelet Estimate Decreased
[2023-08-12 10:22] LABS: Lymphocytes % (manual) 22 (10.0-50.0); Monocytes % (manual) 26 (0-12); Platelet Estimate Decreased
[2023-08-12] MEDS: ACYCLOVIR 400 MG TAB PO SCH (11:43)
[2023-08-12 12:00] VITALS: BP 128/62; PULSE 70; RESP 15; O2SAT 93
[2023-08-12] MEDS ORDERED: DOXY-447 PO (12:54)
== END 2023-08-12 13:24 | disposition home or self-care (01) | DRG 811 ==
LOC: ER 13:50 → TELE 21:42
PROVIDERS: ADMIT Nurse Practitioner; ATTEND Nurse Practitioner
PROC: 30233N1 Transfusion of Nonautologous Red Blood Cells into Peripheral Vein, Percutaneous Approach (ICD-10-PCS; principal; 2023-08-12)
DX: D64.9 Anemia, unspecified (principal); N18.6 End stage renal disease; I13.2 Hypertensive heart and chronic kidney disease with heart failure and with stage 5 chronic kidney disease, or end stage renal disease; C90.00 Multiple myeloma not having achieved remission; D61.818 Other pancytopenia; E11.22 Type 2 diabetes mellitus with diabetic chronic kidney disease; E83.51 Hypocalcemia; G30.9 Alzheimer's disease, unspecified; F02.80 Dementia in other diseases classified elsewhere, unspecified severity, without behavioral disturbance, psychotic disturbance, mood disturbance, and anxiety; I27.20 Pulmonary hypertension, unspecified; I50.9 Heart failure, unspecified; Z96.642 Presence of left artificial hip joint; I48.0 Paroxysmal atrial fibrillation; Z79.01 Long term (current) use of anticoagulants; Z79.899 Other long term (current) drug therapy; Z82.0 Family history of epilepsy and other diseases of the nervous system; Z82.49 Family history of ischemic heart disease and other diseases of the circulatory system; Z83.3 Family history of diabetes mellitus; Z86.711 Personal history of pulmonary embolism; Z99.2 Dependence on renal dialysis; D63.1 Anemia in chronic kidney disease
CPT/HCPCS: 36415; 36430; 71046; 80053; 81001; 82270; 83690; 83735; 84484; 85007; 85027; 85610; 85730; 86850; 86900; 86901; 86920; 87040; 93005; C9113; G0378; J0696